=== PATIENT | male | born 1990 | race Caucasian/White ===

== ENCOUNTER 2020-12-10 08:44 | Emergency (ER) | payer OTHER ==
[2020-12-10 08:51] VITALS: BP 141/87; PULSE 85; RESP 20; TEMP 97.5
[2020-12-10] MEDS ORDERED: TOBRAMYCIN 0.3% OPHTH DROPS 5 ML BTL BOTH EYES STA (09:15)
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
== END 2020-12-10 09:37 | disposition home or self-care (01) ==
LOC: EC 08:44
DX: T65.91XA Toxic effect of unspecified substance, accidental (unintentional), initial encounter (principal); H10.213 Acute toxic conjunctivitis, bilateral; F17.200 Nicotine dependence, unspecified, uncomplicated
CPT/HCPCS: 99283

== ENCOUNTER 2023-05-25 11:40 | Emergency (ER) | payer OTHER ==
[2023-05-25] MEDS ORDERED: ACETAMINOPHEN TAB 500 MG TAB PO STA (12:05)
--- NOTE | 2023-05-25 12:05 | ED ---
General Adult HPI <Irvin Dickson - Last Filed: 05/25/23 12:06> - General Source: patient, RN notes reviewed, old records reviewed <Lázaro Martines - Last Filed: 05/25/23 14:03> - General Stated complaint: Rt foot pain Time Seen by Provider: 05/25/23 12:04 - History of Present Illness Initial comments: 32-year-old male presents to the ED with a chief complaint of right ankle pain. Patient states a few days ago twisted his right ankle. Starting yesterday states he has been unable to put weight on it secondary to the pain. Denies fever. Denies swelling of the right leg. Denies pain of the right leg. (Irvin Dickson) Patient is a 32-year-old male who presents emergency Department complaining of right ankle pain. He twisted his ankle a few days ago. Woke up starting yesterday and it was more swollen and painful. Describes pain over the lateral aspect of the right ankle. Denies any other injuries. He presents for further evaluation of this time. Originally evaluated as a quick note. (Lázaro Martines) - Related Data Allergies Allergy/AdvReac Type Severity Reaction Status Date / Time No Known Allergies Allergy Verified 05/25/23 12:34 Review of Systems ROS Other: All systems not noted in ROS Statement are negative. <Irvin Dickson - Last Filed: 05/25/23 12:06> ROS Other: All systems not noted in ROS Statement are negative. <Lázaro Martines - Last Filed: 05/25/23 14:03> ROS Statement: Those systems with pertinent positive or pertinent negative responses have been documented in the HPI. Review of Systems: CONST: Denies fever EYES: Denies blurry vision ENT: Denies nasal congestion C/V: Denies Chest pain RESP: Denies shortness of breath GI: Denies abdominal pain : Denies dysuria SKIN: Denies rash. MSK: Endorses right ankle pain. NEURO: Denies headache (Lázaro Martines) Past Medical History Past Medical History: No Reported History History of Any Multi-Drug Resistant Organisms: None Reported Past Surgical History: No Surgical Hx Reported Past Psychological History: No Psychological Hx Reported Smoking Status: Current every day smoker Past Alcohol Use History: None Reported Past Drug Use History: Marijuana <Irvin Dickson - Last Filed: 05/25/23 12:06> General Exam <Irvin Dickson - Last Filed: 05/25/23 12:06> <Lázaro Martines - Last Filed: 05/25/23 14:03> - General Exam Comments Initial Comments: Visual Physical Exam Vital signs reviewed General: Well-appearing, nontoxic, no acute distress. Head: Normocephalic, atraumatic Eyes: PERRLA, EOMI ENT: Airway patent Chest: Nonlabored breathing Skin: No visual rash, normal skin tone Neuro: Alert and oriented 3 Musculoskeletal: No gross abnormalities (Irvin Dickson) General: Appears in no acute distress. HEAD: Normal with no signs of head trauma. EYES: EOMI. ENT: Hearing grossly intact. RESPIRATORY: No respiratory distress. C/V: Regular rate and rhythm. ABD: Abdomen is nondistended. EXT: Endorses right ankle pain, tenderness in the right lateral malleolus. Edema. SKIN: No rashes or lesions observed on exposed skin. NEURO: Alert and oriented. (Lázaro Martines) Course Vital Signs 05/25/23 12:31 Temperature 98 F Pulse Rate 109 H Respiratory 18 Rate Blood Pressure 156/113 O2 Sat by Pulse 98 Oximetry Medical Decision Making <Irvin Dickson - Last Filed: 05/25/23 12:06> <Lázaro Martines - Last Filed: 05/25/23 14:03> - Medical Decision Making Quicknote portion performed. Signed Irvin Dickson PA-C (Irvin Dickson) Was pt. sent in by a medical professional or institution (JUSTIN Conn, SCHOOL PROGRAM DIRECTOR, urgent care, hospital, or long-term...) When possible be specific @ -No Did you speak to anyone other than the patient for history (EMS, parent, family, police, friend...)? What history was obtained from this source @ -No Did you review nursing and triage notes (agree or disagree)? Why? @ -I reviewed and agree with nursing and triage notes Were old charts reviewed (outside hosp., previous admission, EMS record, old EKG, old radiological studies, urgent care reports/EKG's, long-term records)? Report findings @ -No old charts were reviewed Differential Diagnosis (chest pain, altered mental status, abdominal pain women, abdominal pain men, vaginal bleeding, weakness, fever, dyspnea, syncope, headache, dizziness, GI bleed, back pain, seizure, CVA, palpatations, mental health, musculoskeletal)? @ -Differential Musculoskeletal Muscular strain, contusion, ligament sprain, fracture, arthritis, septic arthritis, bursitis, cellulitis, muscle spasm, nerve compression, DVT, arterial occlusion, herpes zoster, electrolyte abnormality, tumor.... This is not meant to be in all inclusive list EKG interpreted by me (3pts min.). @ -None done X-rays interpreted by me (1pt min.). @ -X-ray reveals soft tissue swelling however no obvious bony traumatic injury of the right ankle. CT interpreted by me (1pt min.). @ -None done U/S interpreted by me (1pt. min.). @ -None done What testing was considered but not performed or refused? (CT, X-rays, U/S, labs)? Why? @ -None What meds were considered but not given or refused? Why? @ -None Did you discuss the management of the patient with other professionals (professionals i.e. , PA, SCHOOL PROGRAM DIRECTOR, lab, RT, psych nurse, social services director, interactive art director, teacher, medical officer psychiatry, case operator)? Give summary @ -No Was smoking cessation discussed for >3mins.? @ -No Was critical care preformed (if so, how long)? @ -No Were there social determinants of health that impacted care today? How? (Homelessness, low income, unemployed, alcoholism, drug addiction, transportation, low edu. Level, literacy, decrease access to med. care, care home, rehab)? @ -No Was there de-escalation of care discussed even if they declined (Discuss DNR or withdrawal of care, Hospice)? DNR status @ -No What co-morbidities impacted this encounter? (DM, HTN, Smoking, COPD, CAD, Cancer, CVA, ARF, Chemo, Hep., AIDS, mental health diagnosis, sleep apnea, morbid obesity)? @ -None Was patient admitted / discharged? Hospital course, mention meds given and route, prescriptions, significant lab abnormalities, going to OR and other pertinent info. @ -Based the patient's presentation and physical exam, presents with triage was negative for any fracture. I discussed the results with the patient. He will be given a prescription for Tylenol 3 starter pack as as well as follow-up with orthopedics. He'll be given a ankle splint as well as crutches. Patient agreement with this plan. He is given a work note. Patient was in agreement with this plan. Vital signs within normal limits. Strict return precautions discussed. I instructed the patient to follow up with their PCP in the next 1-3 days. I provided contact information for follow up with orthopedic. I explained that the patient should return to the emergency department if they experience any worsening symptoms. Strict return precautions were discussed with the patient. The patient expressed understanding of these instructions. I answered all que stions that the patient had. The patient was discharged home in good condition with their prescriptions and follow up information. Undiagnosed new problem with uncertain prognosis? @ -No Drug Therapy requiring intensive monitoring for toxicity (Heparin, Nitro, Insulin, Cardizem)? @ -No Were any procedures done? @ -No Diagnosis/symptom? @ -Right ankle sprain Acute, or Chronic, or Acute on Chronic? @ -Acute Uncomplicated (without systemic symptoms) or Complicated (systemic symptoms)? @ -Uncomplicated Side effects of treatment? @ -No Exacerbation, Progression, or Severe Exacerbation? @ -No Poses a threat to life or bodily function? How? (Chest pain, [place], OR, pneumonia, PE, COPD, DKA, ARF, appy, cholecystitis, CVA, Diverticulitis, Homicidal, Suicidal, threat to staff... and all critical care pts) @ -No (Lázaro Martines) Disposition <Irvin Dickson - Last Filed: 05/25/23 12:06> Is patient prescribed a controlled substance at d/c from ED?: No Time of Disposition: 12:39 <Lázaro Martines - Last Filed: 05/25/23 14:03> Clinical Impression: Right ankle sprain Disposition: HOME SELF-CARE Condition: Good Instructions (If sedation given, give patient instructions): Ankle Sprain (ED) Referrals: [facility] [NON-STAFF] - (Supplier of crutches. ) None,Stated [Primary Care Provider] - 1-2 days Ze Kinsey MD [STAFF PHYSICIAN] - 1-2 days
--- NOTE | 2023-05-25 12:31 | XR ---
EXAMINATION TYPE: XR ankle complete RT DATE OF EXAM: 05/25/2023 12:22 PM CLINICAL INDICATION:Male, 32 years old with history of ankle injury r/o fx; [facility] COMPARISON: None TECHNIQUE: XR ankle complete RT; ankle is imaged in frontal, lateral and oblique projections. FINDINGS: There is no evidence of acute osseous pathology. The joint spaces are well-preserved without evidenc e of subluxation or dislocation. Kager's fat pad is intact. Mild soft tissue swelling around the ankl e. No radiopaque foreign bodies are identified. Remote injury to the deltoid ligament suggested. IMPRESSION: 1. No evidence of acute fracture. 2. Subcutaneous swelling around the ankle likely secondary to underlying soft tissue injury.
[2023-05-25] MEDS ORDERED: ACET/COD 300 MG/30 MG STARTER PACK 6 TAB BTL PO STA (12:45)
[2023-05-25 13:04] VITALS: BP 156/113; PULSE 109; RESP 18; TEMP 98
== END 2023-05-25 13:06 | disposition home or self-care (01) ==
LOC: EC 11:40
DX: S93.401A Sprain of unspecified ligament of right ankle, initial encounter (principal); F17.200 Nicotine dependence, unspecified, uncomplicated; F12.90 Cannabis use, unspecified, uncomplicated; X50.1XXA Overexertion from prolonged static or awkward postures, initial encounter
CPT/HCPCS: 73610; 99283; 29515; L4350